=== PATIENT | female | born 1990 | race Caucasian/White ===

== ENCOUNTER 2023-10-12 06:54 | Emergency (ER) | payer OTHER, SELFPAY ==
[2023-10-12 07:01] VITALS: BP 117/79; PULSE 100; RESP 18; TEMP 37.9; O2SAT 97; BMI 23.2
--- NOTE | 2023-10-12 07:27 | ED.GENADULT ---
HPI - General Adult General Date Seen: 10/12/23 Chief complaint: Nausea/Vomiting Stated complaint: vomiting,diarrhea 8 weeks Time Seen by Provider: 10/12/23 07:03 History of Present Illness HPI narrative: this is a 33-year-old female who is a G4, P3 currently about 8 weeks . She reports that she had an outpatient ultrasound yesterday that showed a viable embryo. She presents to the ER this morning for evaluation of diarrhea it and vomiting. To her 3 children have been sick recently with self-limited diarrheal illnesses which she presumes are probably viral. She developed symptoms 2 days ago on Wednesday. Symptoms started with nausea and vomiting and then diarrhea. She has had multiple watery stools. No bloody removed with the stool. Diarrhea has been mostly liquid. No bloody emesis. Yesterday morning she was feeling a little bit better but then she got progressively worse throughout the day. She has had multiple episodes of vomiting and many episodes of diarrhea overnight P she is feeling weak. She has felt chilled but does not know she has had a fever. No fainting. She is having some crampy abdominal pain. No vaginal discharge or bleeding. No other recent antibiotics. No travel. No suspicious food intake. Related Data Home Medications Medication Instructions Recorded Confirmed 10/12/23 Previous Rx's Medication Instructions Recorded metoclopramide HCl 10 mg tablet 10 mg PO Q6H PRN nausea and 10/12/23 (Reglan) vomiting #10 tabs Allergies Allergy/AdvReac Type Severity Reaction Status Date / Time No Known Drug Allergies Allergy Verified 10/12/23 07:06 [facility] Social History Smoking Status: Never smoker How often do you have a drink containing alcohol: never AUDIT-C Alcohol total score: 0 Non-prescribed substance use: denies use Exam Narrative: Exam Narrative: Constitutional: Appears well-developed and well-nourished. Alert. Conversant and polite, but anxious. Non toxic. low-grade fever. HENT: Head: Atraumatic. Nose: Nose normal. Mouth/Throat: Oral mucosa is clear But dry, not desiccated or cracked. no trismus. Pharynx normal. Tonsils symmetric. No tonsillar enlargement, erythema, or exudate. Eyes: Conjunctivae normal. EOM normal. Pupils equal, round, and reactive to light. No scleral icterus. Neck: Normal range of motion. Neck supple. No tracheal deviation present. Cardiovascular: Normal rate, regular rhythm. No gallop. No friction rub. No murmur heard. Symmetric radial artery pulses Pulmonary/Chest: Effort normal. No stridor. No respiratory distress. No wheezes. No rales. No rhonchi . No tenderness. Abdominal: Soft. Bowel sounds normal. No distension. No mass. No tenderness. No rebound. No guarding. Musculoskeletal: RUE: Normal range of motion. No tenderness. No deformity LUE: Normal range of motion. No tenderness. No deformity RLE: Normal range of motion. No edema. No tenderness. No deformity LLE: Normal range of motion. No edema. No tenderness. No deformity Neurological: Alert and oriented to person, place, and time. Normal strength. CN II-VII intact. No sensory deficit. GCS eye subscore is 4. GCS verbal subscore is 5. GCS motor subscore is 6. Normal coordination Skin: Skin is warm and dry. No rash noted. No pallor. Normal capillary refill. Psychiatric: Normal mood. Normal affect. Const: Vital Signs, click to edit/add: Vital Signs - 24 hr 10/12/23 07:01 Temperature 100.2 F H Pulse Rate [Pulse Oximeter] 100 Respiratory Rate 18 Blood Pressure [Ri t Upper Arm] 117/79 Pulse Oximetry 97 Oxygen Delivery Me thod Room Air Course Course ED Course: recheck-says her stomach is starting to calm down after Reglan. Has received Almost all of 1 L. She is willing to try a p.o. challenge. Vital Signs Vital signs: Initial Vital Signs Temperature 100.2 F H 10/12/23 07:01 Temperature Source Temporal Artery Scan 10/12/23 07:01 Pulse Rate 100 10/12/23 07:01 Respiratory Rate 18 10/12/23 07:01 Blood Pressure 117/79 10/12/23 07:01 Blood Pressure Mean 91 10/12/23 07:01 Pulse Oximetry 97 10/12/23 07:01 Oxygen Delivery Method Room Air 10/12/23 07:01 Vital Signs Temperature 100.2 F H 10/12/23 07:01 Pulse Rate 100 10/12/23 07:01 Respiratory Rate 18 10/12/23 07:01 Blood Pressure 117/79 10/12/23 07:01 Pulse Oximetry 97 10/12/23 07:01 Oxygen Delivery Method Room Air 10/12/23 07:01 Temperature 100.2 F H 10/12/23 07:01 Pulse Rate 100 10/12/23 07:01 Respiratory Rate 18 10/12/23 07:01 Blood Pressure 117/79 10/12/23 07:01 Pulse Oximetry 97 10/12/23 07:01 Oxygen Delivery Method Room Air 10/12/23 07:01 Medications Administered Medications: Discontinued Medications Generic Name Dose Route Start Last Admin Trade Name Remy PRN Reason Stop Dose Admin Sodium Chloride 1,000 mls @ 1,000 mls/hr 10/12/23 07:15 10/12/23 07:34 0.9 % Sodium Chloride 1000 Ml IV 10/12/23 08:14 1,000 mls/hr .Q1H ALFIE Administration Metoclopramide HCl 10 mg 10/12/23 07:14 10/12/23 07:34 Metoclopramide Hcl 5 Mg/Ml Inj IVP 10/12/23 07:15 10 mg ONCE ONE Administration Medical Decision Making [facility] Narrative Medical decision making narrative: This patient presents with vomiting and diarrhea. The patient's symptoms and exam could be consistent with a viral GI infection. Two of her children have been sick in the past couple of days with self-limited GI illnesses. There is no high fever, severe pain, bilious or bloody emesis, blood or mucous in the stool, severe abdominal pain, or other concerning signs for a bacterial infection. No recent travel or high risk exposure for baceraial pathogen. No recent antibiotics or risk factors for C. diff. I don't see any evidence for appendicitis, bowel obstruction, abscess, bowel perforation, or other surgical emergency. She is currently 8 weeks . She is not having any significant pelvic pain or vaginal bleeding to suggest miscarriage. She has already had an outpatient ultrasound (yesterday ) the confirmed a viable IUP. limits our choice for antiemetics and antidiarrheals. She says she really wants to be is safe as possible with her . Discussed that there is limited safety data for Imodium and pregnanc ( has found in upto date), but the risk of may be worth the benefit in this case to avoid dehydration and resulting electrolyte shifts from uncontrolled diarrhea. She prefers to hold off on Imodium. Will try Reglan for nausea rather than Zofran given mixed safety data from Zofran during 1st trimester. Labs show no concerning electrolyte disturbance or renal failure. After meds given the patient is feeling better. At this point, the patient is non-septic appearing and well hydrated.I think the patient can be managed as an outpatient. We have discussed oral rehydration strategies. They understand and can perform the needed interventions at home. I have provided a prescription for antiemetics to facilitate oral hydration ( Reglan). We have discussed the signs and symptoms of worsening dehydration. They understand the need for immediate reevaluation if any of these symptoms occur. They are also directed to obtain close outpatient follow up within 2-3 days. Lab Data Labs: Lab Results 10/12/23 Range/Units 07:30 WBC 13.24 H (4.50-11.00) K/uL RBC 4.77 (4.00-5.20) m/uL Hgb 13.3 (12.0-16.0) gm/dL Hct 39.0 (33.0-51.0) % MCV 82 (80-100) fL MCH 28 (26-34) pg MCHC 34 (32-36) gm/dL RDW Coeff of Asiya 14.0 (11.5-15.5) % Plt Count 380 (140-440) K/uL Neut % (Auto) 93.9 H (42.0-72.0) % Lymph % (Auto) 3.6 L (20-44) % [place] % (Auto) 2.3 (0.0-11.0) % Eos % (Auto) 0.0 (0.0-7.0) % Baso % (Auto) 0.1 (0.0-3.0) % Neut # (Auto) 12.40 H (1.7-7.0) K/uL Lymph # (Auto) 0.50 L (0.90-2.90) K/uL [place] # (Auto) 0.30 (0.00-0.90) K/UL Eos # (Auto) 0.00 (0.00-0.50) K/uL Baso # (Auto) 0.00 (0.00-0.30) K/uL Abs Immat Gran (auto) 0.00 (0.00-0.30) K/uL Imm/Tot Granulo (auto) 0.1 % Sodium 137 (135-149) mmol/L Potassium 3.8 (3.6-5.1) mmol/L Chloride 104 (96-114) mmol/L Carbon Dioxide 20 (20-32) mmol/L Anion Gap 13 (7-15) mEq/L BUN 10 (5-24) mg/dL Creatinine 0.4 L (0.5-1.5) mg/dL Estimated Creat Clear 174.36 Estimated GFR 135 ml/min Glucose 118 H (60-115) mg/dL Calcium 9.3 (8.4-10.6) mg/dL Discharge Plan Discharge Clinical Impression: Nausea vomiting and diarrhea, Dehydration Patient Disposition: Home, Self-Care Condition: Stable Instructions: Dehydration (ED), Acute Nausea and Vomiting (DC), Acute Diarrhea (ED) Additional Instructions: With please return to the ER or see your doctor right away if you have any problems especially uncontrolled vomiting or diarrhea, dehydration, high fever, bloody stool or vomit, or any concern for your baby such as vaginal bleeding or vaginal discharge or pelvic cramping. Prescriptions: New metoclopramide HCl [Reglan] 10 mg tablet 10 mg PO Q6H PRN (Reason: nausea and vomiting) Qty: 10 0RF No Action Follow Up/Referrals: Corrina Arnold MD [Primary Care Provider] - Stand Alone Forms: [employer] Info Instructions
[2023-10-12] MEDS: 0.9 % SODIUM CHLORIDE 1000 ml 1,000 ML IV (07:34)
[2023-10-12] MEDS: METOCLOPRAMIDE HCL 5 MG/ML INJ 10 MG IVP (07:34)
[2023-10-12 07:51] LABS: Basophils Percent Auto 0.1 % (0.0-3.0); Hemoglobin* 13.3 gm/dL (12.0-16.0); Immature Granulocytes Pct Auto 0.1 %; Lymphocytes Percent Auto 3.6 % (20-44); Mean Corpuscular HGB Conc 34 gm/dL (32-36); Mean Corpuscular Hemoglobin 28 pg (26-34); Mean Corpuscular Volume 82 fL (80-100); Monocytes Percent Auto 2.3 % (0.0-11.0); Neutrophils Percent Auto 93.9 % (42.0-72.0); Platelet Count* 380 K/uL (140-440); Red Blood Count 4.77 m/uL (4.00-5.20); White Blood Count* 13.24 K/uL (4.50-11.00)
[2023-10-12 07:56] LABS: Chloride* 104 mmol/L (96-114); Potassium* 3.8 mmol/L (3.6-5.1); Slide Review Reflex No; Sodium* 137 mmol/L (135-149)
[2023-10-12 07:58] LABS: Creatinine* 0.4 mg/dL (0.5-1.5); Est. Creatinine Clearance* 174.36; Estimated Glomerular Filt Rate 135 ml/min
[2023-10-12 07:59] LABS: Anion Gap 13 mEq/L (7-15); Blood Urea Nitrogen* 10 mg/dL (5-24); Calcium* 9.3 mg/dL (8.4-10.6); Carbon Dioxide* 20 mmol/L (20-32); Glucose* 118 mg/dL (60-115)
== END 2023-10-12 09:19 | disposition home or self-care (01) ==
PROVIDERS: Emergency Provider Emergency Medicine; PCP Family Medicine
DX: R11.2 Nausea with vomiting, unspecified (principal); R19.7 Diarrhea, unspecified; E86.0 Dehydration
CPT/HCPCS: 36415; 80048; 85025; 96361; 96374; 99283; 99284; J2765; J7030

== ENCOUNTER 2024-05-16 14:08 | Outpatient (CLI) | payer OTHER, SELFPAY ==
[2024-05-16 14:28] VITALS: BP 124/79; PULSE 86
--- NOTE | 2024-05-16 16:29 | PC.OBNST ---
NST Note NST Note Start: 05/16/24 14:21 Freq: ONCE Status: Active Protocol: Document 05/16/24 14:21 RRP (Rec: 05/16/24 16:29 RRP [id number]) NST Note 4 Para (# of births) 3 EDC 05/20/24 Gestational Age In Weeks & Days 39 Weeks & 3 Days Patient Presented with Complaint(s) of Decreased movement Reactive Yes Appropriate for Gestational Age Yes Princess Myers Date 05/16/24 Reactive Yes Appropriate for Gestational Age Yes Ashanti Bray Date 05/16/24 OB NST charge Yes Complete NST Note via Write Note Yes The provider's electronic signature indicates the NST is reactive/appropriate for gestational age. *Note to provider: If an addendum is required, open the patient's chart and click on the note under the Nurse/Allied Health tab.
== END 2024-05-16 16:05 | disposition home or self-care (01) ==
LOC: OB OUT 14:10 → OB 14:12
PROVIDERS: PCP Family Medicine; Visit Provider Surgery
DX: O36.8130 Decreased fetal movements, third trimester, not applicable or unspecified (principal); Z3A.39 39 weeks gestation of pregnancy
CPT/HCPCS: 59025; G0463

== ENCOUNTER 2024-05-18 13:00 | Outpatient (RCR) | payer OTHER, SELFPAY | END 2024-08-29 12:38 | disposition home or self-care (01) | PROVIDERS: PCP Family Medicine; Visit Provider Family Medicine | DX: O99.891 Other specified diseases and conditions complicating pregnancy (principal); M54.9 Dorsalgia, unspecified; Z51.89 Encounter for other specified aftercare | CPT/HCPCS: 97012; 97110; 97140; 97161; 97530 ==

== ENCOUNTER 2024-05-24 03:28 | Inpatient (IN) | payer OTHER, SELFPAY ==
[2024-05-24] VITALS (16 sets, daily range): BP systolic 103–142; BP diastolic 59–82; PULSE 82–121; RESP 16–96; TEMP 36.3–36.9; O2SAT 96–98; BMI 30.2
[2024-05-24] MEDS: LIDOCAINE 1 % PF 30 ML INJECTION (04:39)
[2024-05-24] MEDS: OXYTOCIN 10 UNIT/ML INJ IM (04:39)
--- NOTE | 2024-05-24 05:09 | P.OBHP_ITS ---
OB - H&P: HPI Labor/Induction History of Present Illness Date Seen: 05/24/24 Chief Complaint: The patient is a 34 year old 4 para 3 at 40+4 weeks gestation by LMP and confirmed with 1st trimester US, who presents with painful, regular contractions. Chief complaint: Maternity : 4 Para: 3 Narrative: Blanca Vaughn is a 34 year old at 40+4 weeks here for active labor at term. has been uncomplicated. GBS negative, rH+, rubella immune. She started having contractions at 2300 on 05/23, these became severe around 0230 on 05/24 and she presented to labor and delivery around 0330 at 10 cm dilated and had SROM at 0339. History of Present Dating criteria: based on LMP care: good care Ultrasounds: normal 1st trimester US and normal mid trimester US Medical complications: none Labs Blood type: O (+) positive Rubella: immune RPR/VDLR: nonreactive GBS status: negative HBsAG: negative Review of Systems Status of ROS: Reports: 6 or more systems reviewed and unremarkable except as noted in History and below Meds Home Medications and Allergies Home Medications ?Medication ?Instructions ?Recorded ?Confirmed ?Type 1 cap PO DAILY 10/12/23 05/24/24 History mometasone 50 mcg/actuation nasal 2 spray intranasal DAILY 05/24/24 05/24/24 History spray Allergies Allergy/AdvReac Type Severity Reaction Status Date / Time No Known Drug Allergies Allergy Verified 03/09/24 11:21 OB - H&P: Exam Physical Exam: Vital signs: Temp Pulse Resp BP 98.2 F 100 16 116/76 05/24/24 04:20 05/24/24 05:03 05/24/24 04:20 05/24/24 05:03 Constitutional: Constitutional: no acute distress Routine HEENT Exam: Head: Present atraumatic Eye: Present EOMI and PERRL ENT: Present mucous membranes moist Routine Neck Exam: Neck: Present full ROM Routine Respiratory Exam: Respiratory: Present CTA bilaterally Routine Cardiovascular Exam: Cardiovascular: RRR Detailed Labor and Delivery Exam: Dilation (cm): 10 Effacement (%): 100 Contraction frequency (min): 2 Contraction intensity: Strong/Firm Fetus (Single): Station: 0 Position: Right Occiput Anterior Amniotic Membrane Status: SROM Amniotic Membrane Fluid Description: Clear Heart Rate Baseline: 140 Monitor Accelerations: Present Monitor Decelerations: None Penitentiary Variability: Moderate (6-25) OB - Problem Based A/P Additional Plan (1) Vaginal delivery: Problem details: x4. 3rd degree tear with 1st delivery. Status: Acute Plan Term in active labor desires waterbirth, consent obtained. Expectant management. Anticipate .
--- NOTE | 2024-05-24 05:17 | W.PM.VAGD1_ITS ---
Procedure Delivery date: 05/24/24 Procedure Done: Global Delivery monitor: external FHT and external uterine Route of delivery: (water ) Laceration description: Perineal - 2nd Degree Estimated blood loss (mL): 375 Anesthesia type: None Narrative: The patient is a 34 year-old admitted on 05/24/2024 at 40 Weeks, 4 Days gestation for active labor starting 2300 on 05/23.? Cervical exam on admission was 10 cm/100 % effaced/0 station with membranes ruptured in vertex presentation.? Contractions were every 2 minutes.? heart rate demonstrated baseline 140 bpm with moderate variability, + accelerations, - decelerations; a category 1 tracing.? SROM occurred at 0339 with clear fluid. ? Labor Analgesia:? none ? Pitocin:? post partim ? Labor onset:? 05/23/24 at 2300 ? Complete:? 033 ? Pushing:? 0410, once able to enter the birthing tub ? heart tones during second stage were 140s with intermittent ascultataion. ? At 0422 a viable female delivered in vertex OA presentation over intact perineum via spontaneous vaginal delivery.? was placed on maternal abdomen.? Cord was clamped and cut after a 30-60 second delay.? Nose and mouth were bulb suctioned.? weight pending.? 8 at 1 minute and 9 at 5 minutes.? Shoulder dystocia: no.? Nuchal cord: yes, and nuchal hand. Cord reduced after delivery. ? Placenta delivered spontaneously and complete at 0436 with a 3 vessel cord. ? Mother and infant were stable after delivery. ? Lacerations:? 2nd degree perineal, repaired with 3-0 vicryl suture. ? Blood loss: 375 mL. Blood loss measurement type: EBL ? Sponge and needles counts are correct. [place] Gender: Female presentation: vertex Placental Delivery Description: Spontaneous Cord Description: Nuchal Cord total score - 1 minute: 8 total score - 5 minute: 9
[2024-05-24] MEDS: IBUPROFEN 600 MG TABLET PO ×3 (05:25→19:56)
[2024-05-24] MEDS: ACETAMINOPHEN 500 MG TABLET 1000 MG PO ×3 (10:26→22:44)
[2024-05-24] MEDS: DOCUSATE SODIUM 100 MG CAPSULE PO (10:26)
[2024-05-25] MEDS: IBUPROFEN 600 MG TABLET PO (03:45)
[2024-05-25 05:02] VITALS: BP 105/70; PULSE 91; RESP 16; TEMP 36.6
[2024-05-25] MEDS: ACETAMINOPHEN 500 MG TABLET 1000 MG PO (06:09)
--- NOTE | 2024-05-25 07:41 | P.DS_ITS ---
DS: Providers Provider Date Seen: 05/25/24 Date of admission: 05/24/24 03:28 Primary care physician: Corrina Arnold MD Admitting Clinician: Ambrose Finney MD Attending Physician on discharge: Armida De Santiago DO Date of Discharge: 05/25/24 Exam Const: Vital Signs, click to edit/add: Vital Signs - 24 hr 05/24/24 08:09 05/24/24 08:09 05/24/24 08:09 Temperature 98.4 F Pulse Rate 96 Pulse Rate [Pulse Oximeter] 96 Respiratory Rate 16 Blood Pressure 111/69 Blood Pressure [Le ft Arm] 111/69 Pulse Oximetry Oxygen Delivery Me thod Room Air 05/24/24 13:34 05/24/24 16:51 05/24/24 19:57 Temperature 98.0 F 97.4 F L 98.3 F Pulse Rate Pulse Rate [Pulse Oximeter] 98 93 94 Respiratory Rate 16 96 H 16 Blood Pressure Blood Pressure [Le ft Arm] 111/76 113/71 110/75 Pulse Oximetry 97 96 98 Oxygen Delivery Me thod Room Air Room Air Room Air 05/24/24 22:46 05/25/24 05:02 Temperature 97.4 F L 97.9 F Pulse Rate Pulse Rate [Pulse Oximeter] 91 91 Respiratory Rate 16 16 Blood Pressure Blood Pressure [Le ft Arm] 113/73 105/70 Pulse Oximetry 97 Oxygen Delivery Me thod Room Air Common normals: no apparent distress General appearance: comfortable Resp: Common normals: normal respiratory effort and clear to auscultation bilaterally Auscultation: clear to auscultation bilaterally Cardio: Common normals: regular rate, regular rhythm and no murmurs Rate: regular rate Rhythm: regular rhythm : Uterus: firm Extremity: Common normals: no pedal edema OB - DS: Summary Hospital Course Hospital Course: The patient is a 34 year old G 4 P 4 at 40.4 weeks gestation that was admitted to the Center on 05/24/24 for active labor. She had an uncomplicated vaginal delivery. She delivered a viable female infant. She is breast feeding. the patient has done well. Peripartum Data Infant delivery method: Vaginal Laceration description: Perineal - 2nd Degree Infant Gender: Female Infant Discharge Plan: Home Status at Discharge Functional status at discharge: independent ambulation Time Spent with Patient Time attestation: Total time spent providing and/or coordinating discharge services: Time spent: Less than 30 minutes Discharge Plan Discharge Disposition: Home, Self-Care Date of Admission: 05/24/24 03:28 Attending Provider on Discharge: Armida De Santiago Primary Care Provider: Corrina Arnold Condition: Stable Anticipated Discharge Date/Time: 05/25/24 07:38 Discharge Medications: Continued mometasone 50 mcg/actuation spray,non-aerosol 2 spray intranasal DAILY Rx Instructions: administer into each nostril 1 cap PO DAILY Discharge Orders: Discharge Order (Routine); Ordered 05/25/24 Ordered By: Armida De Santiago Patient Education: Vaginal Delivery (DC), OB Vaginal/Breast Feeding Follow Up Appointments: Corrina Arnold MD [Primary Care Provider] - Forms: [facility] Info Instructions
[2024-05-25 08:08] VITALS: BP 108/72; PULSE 93; RESP 16; TEMP 36.7; O2SAT 96
[2024-05-25] MEDS: DOCUSATE SODIUM 100 MG CAPSULE PO (08:08)
[2024-05-26 21:46] LABS: Rapid Plasma Reagin (RPR) Non Reactive (Non Reactive)
== END 2024-05-25 11:30 | disposition home or self-care (01) | DRG 807 ==
LOC: OB OUT 03:50 → OB 03:50
PROVIDERS: Admitting Provider Surgery; PCP Family Medicine; Visit Provider Surgery
DX: O48.0 Post-term pregnancy (principal); Z37.0 Single live birth; O70.1 Second degree perineal laceration during delivery; Z3A.40 40 weeks gestation of pregnancy
CPT/HCPCS: 36415; 85018; 86592; A9270; J2001; J2590

== ENCOUNTER 2024-06-05 19:07 | Emergency (ER) | payer OTHER, SELFPAY ==
[2024-06-05 19:13] VITALS: BP 138/95; PULSE 135; RESP 18; TEMP 38.8; O2SAT 98; BMI 27.5
[2024-06-05] MEDS: 0.9 % SODIUM CHLORIDE 1000 ml 1,000 ML IV ×2 (20:05→20:43)
[2024-06-05] MEDS: cefTRIAXone 1 GM in 0.9 % SODIUM CHLORIDE Mini-bag 100 ML IVPB (20:05)
[2024-06-05] MEDS: KETOROLAC 30 MG/ML inj 15 MG IVP (20:05)
[2024-06-05 20:14] LABS: Lactate* 2.1 mmol/L (0.5-1.9)
[2024-06-05 20:15] LABS: Basophils Percent Auto 0.2 % (0.0-3.0); Eosinophils Percent Auto 0.7 % (0.0-7.0); Hematocrit 38.9 % (33.0-51.0); Immature Granulocytes Pct Auto 0.2 %; Lymphocytes Percent Auto 5.5 % (20-44); Mean Corpuscular HGB Conc 33 gm/dL (32-36); Mean Corpuscular Hemoglobin 29 pg (26-34); Mean Corpuscular Volume 88 fL (80-100); Neutrophils Percent Auto 89.4 % (42.0-72.0); Platelet Count* 404 K/uL (140-440); RDW Coefficient of Variation % 12.3 % (11.5-15.5); Red Blood Count 4.43 m/uL (4.00-5.20); White Blood Count* 16.58 K/uL (4.50-11.00)
[2024-06-05 20:31] LABS: Chloride* 103 mmol/L (96-114); Slide Review Reflex No; Sodium* 135 mmol/L (135-149)
[2024-06-05 20:32] LABS: Potassium* 4.1 mmol/L (3.6-5.1)
[2024-06-05 20:34] LABS: Creatinine* 0.6 mg/dL (0.5-1.5); Est. Creatinine Clearance* 115.16; Estimated Glomerular Filt Rate 121 ml/min
[2024-06-05 20:35] LABS: Anion Gap 11 mEq/L (7-15); Blood Urea Nitrogen* 14 mg/dL (5-24); Calcium* 9.9 mg/dL (8.4-10.6); Carbon Dioxide* 21 mmol/L (20-32); Glucose* 109 mg/dL (60-115)
[2024-06-05 21:30] VITALS: BP 131/84; PULSE 86; RESP 16; O2SAT 98
[2024-06-05 21:35] LABS: Lactate* 0.6 mmol/L (0.5-1.9)
--- NOTE | 2024-06-05 21:45 | ED_ITS ---
HPI - General Adult General Chief complaint: Post OB/Post- Complication Stated complaint: fever, high BP, headache, 11 days post Time Seen by Provider: 06/05/24 19:10 History of Present Illness HPI narrative: This 34-year-old female comes in with temperature 102? F. Symptoms began today. She is 11 days after delivering her 4th child vaginally. Everything went properly and she has been doing well until today. She does report breast pain but does not have any skin changes or discharge other than milk. She is . She does not report any particular abdominal pain or dysuria symptoms. She did have a second-degree laceration repair just after delivery but reports that this seems to be healing properly. Related Data Home Medications ?Medication ?Instructions ?Recorded ?Confirmed 1 cap PO DAILY 10/12/23 05/24/24 mometasone 50 mcg/actuation nasal 2 spray intranasal DAILY 05/24/24 05/24/24 spray Previous Rx's ?Medication ?Instructions ?Recorded dicloxacillin 500 mg capsule 500 mg PO QID #30 caps 06/05/24 Allergies Allergy/AdvReac Type Severity Reaction Status Date / Time No Known Drug Allergies Allergy Verified 03/09/24 11:21 Review of Systems Status of ROS: Reports: 10 or more systems reviewed and unremarkable except as noted in History and below Narrative: Constitutional: Fever that began today. Eyes: No discharge. No vision changes. HENT: No congestion, no sore throat, no ear pain. Cardiovascular: No chest pain, no palpitations. Respiratory: No shortness of breath, no wheezes, no cough. Gastrointestinal: No abdominal pain, no vomiting, no diarrhea. Genitourinary: No dysuria, no hematuria. Musculoskeletal: Normal range of motion. Skin: No rashes, no pruritis. Neurological: No dizziness, weakness, sensory change, speech change. Endo/Heme/Allergies: No bruising or bleeding. No polydipsia. Pysch: no suicidality, no anxiety, no insomnia. All other systems reviewed and are negative. [facility] Medical History (Updated 06/05/24 @ 21:52 by Martin Gilman MD) History of kidney stones ?Z87.442 - Personal history of urinary calculi (ICD-10) Vaginal delivery ?O80 - Encounter for full-term uncomplicated delivery (ICD-10) Family History Paternal Grandmother ALS (amyotrophic lateral sclerosis) Maternal Grandfather Lung cancer Paternal Grandfather Lung cancer Social History What is your current living situation?: I presently have a place to live Problems where you live: no known problems In the past 12 months, utilities in danger of being shut off: no In past 12 months, lack of transportation kept you from medical appts, meetings, work, or getting things needed for daily living: no In the past 12 mos, have been you worried that your food would run out before you had money to buy more?: never true In the past 12 mos, the food you bought just didn't last and you didn't have money to buy more?: never true Smoking Status: Never smoker How often do you have a drink containing alcohol: never AUDIT-C Alcohol total score: 0 Non-prescribed substance use: denies use How often does anyone, including family, friends and others, physically hurt you : never How often does anyone, including family, friends and others, insult or talk down to you: never How often does anyone, including family, friends and others, threaten you with harm: never How often does anyone, including family, friends and others, scream or curse at you: never Exam Narrative: Exam Narrative: Constitutional: Well-developed, well-nourished, no acute distress. HEENT: Normocephalic, atraumatic. Neck: Normal range of motion. Nontender. Supple. Heart: Regular. No murmurs. Tachycardia. Intact distal pulses. Lungs: Clear to auscultation. No chest discomfort. No wheezes, rhonchi, or rales. Abdomen: Normal bowel sounds. Nontender. No rebound tenderness. Genitalia: Deferred. Back: No midline tenderness. Normal range of motion. Extremities: Normal range of motion. No injury. Skin: Intact. No rash. Warm. No erythema or pallor. Neurologic: No altered sensation. No weakness. Alert and oriented. Psychiatric: No suicidality. No anxiety or depression. No insomnia. Nursing notes and vitals signs are reviewed. Const: Vital Signs, click to edit/add: Vital Signs - 24 hr 06/05/24 19:13 Temperature 102 F H Pulse Rate [Pulse Oximeter] 135 H Respiratory Rate 18 Blood Pressure [Le ft Upper Arm] 138/95 H Pulse Oximetry 98 Oxygen Delivery Me thod Room Air Course Vital Signs Vital signs: Initial Vital Signs Temperature 102 F H 06/05/24 19:13 Temperature Source Temporal Artery Scan 06/05/24 19:13 Pulse Rate 135 H 06/05/24 19:13 Respiratory Rate 18 06/05/24 19:13 Blood Pressure 138/95 H 06/05/24 19:13 Blood Pressure Mean 109 H 06/05/24 19:13 Blood Pressure Position Sitting 06/05/24 19:13 Pulse Oximetry 98 06/05/24 19:13 Oxygen Delivery Method Room Air 06/05/24 19:13 Vital Signs Temperature 102 F H 06/05/24 19:13 Pulse Rate 135 H 06/05/24 19:13 Respiratory Rate 18 06/05/24 19:13 Blood Pressure 138/95 H 06/05/24 19:13 Pulse Oximetry 98 06/05/24 19:13 Oxygen Delivery Method Room Air 06/05/24 19:13 Temperature 102 F H 06/05/24 19:13 Pulse Rate 135 H 06/05/24 19:13 Respiratory Rate 18 06/05/24 19:13 Blood Pressure 138/95 H 06/05/24 19:13 Pulse Oximetry 98 06/05/24 19:13 Oxygen Delivery Method Room Air 06/05/24 19:13 Medications Administered Medications: Discontinued Medications Generic Name Dose Route Start Last Admin Trade Name Freq PRN Reason Stop Dose Admin Sodium Chloride 1,000 mls @ 1,000 mls/hr 06/05/24 19:30 06/05/24 20:43 0.9 % Sodium Chloride 1000 Ml IV 06/05/24 20:29 Infused .Q1H ALFIE Infusion Ceftriaxone Sodium 1 gm/ 100 mls @ 200 mls/hr 06/05/24 19:35 06/05/24 20:43 Sodium Chloride IVPB 06/05/24 19:36 Infused ONCE ONE Infusion Sodium Chloride 1,000 mls @ 1,000 mls/hr 06/05/24 20:45 06/05/24 21:24 0.9 % Sodium Chloride 1000 Ml IV 06/05/24 21:44 Infused .Q1H ALFIE Infusion Ketorolac Tromethamine 15 mg 06/05/24 19:29 06/05/24 20:05 Ketorolac 30 Mg/Ml Inj IVP 06/05/24 19:30 15 mg ONCE ONE Administration Medical Decision Making MDM Narrative Medical decision making narrative: This patient comes in with a fever and tachycardia. She is reporting breast pain. An IV was established and labs are acquired. One culture of her blood is obtained. The patient received a L of normal saline initially as there is possibility of sepsis. Her initial lactate returned at 2.1. She received another L of fluids and repeat lactate returned at 0.6. Her white count is elevated at around 16,000. After blood cultures were obtained the patient did receive a g of Rocephin along with Toradol 15 mg. She began to feel better. I did look with ultrasound at bedside and saw normal breasts bilaterally without any sign of abscess or fluid collection. The patient had a normal vaginal delivery and the placenta and amniotic sac appeared normal post delivery of her baby girl. The patient does not have any particular abdominal tenderness or rebound tenderness. Her symptoms are likely due to a mastitis. I did provide a prescription for dicloxacillin. The patient is okay to return home and will follow-up with her primary physician. Lab Data Labs: Lab Results 06/05/24 06/05/24 Range/Units 19:30 21:29 WBC 16.58 H (4.50-11.00) K/uL RBC 4.43 (4.00-5.20) m/uL Hgb 13.0 (12.0-16.0) gm/dL Hct 38.9 (33.0-51.0) % MCV 88 (80-100) fL MCH 29 (26-34) pg MCHC 33 (32-36) gm/dL RDW Coeff of Asiya 12.3 (11.5-15.5) % Plt Count 404 (140-440) K/uL Neut % (Auto) 89.4 H (42.0-72.0) % Lymph % (Auto) 5.5 L (20-44) % [place] % (Auto) 4.0 (0.0-11.0) % Eos % (Auto) 0.7 (0.0-7.0) % Baso % (Auto) 0.2 (0.0-3.0) % Neut # (Auto) 14.80 H (1.7-7.0) K/uL Lymph # (Auto) 0.90 (0.90-2.90) K/uL [place] # (Auto) 0.70 (0.00-0.90) K/UL Eos # (Auto) 0.10 (0.00-0.50) K/uL Baso # (Auto) 0.00 (0.00-0.30) K/uL Abs Immat Gran (auto) 0.00 (0.00-0.30) K/uL Imm/Tot Granulo (auto) 0.2 % Sodium 135 (135-149) mmol/L Potassium 4.1 (3.6-5.1) mmol/L Chloride 103 (96-114) mmol/L Carbon Dioxide 21 (20-32) mmol/L Anion Gap 11 (7-15) mEq/L BUN 14 (5-24) mg/dL Creatinine 0.6 (0.5-1.5) mg/dL Estimated Creat Clear 115.16 Estimated GFR 121 ml/min Glucose 109 (60-115) mg/dL Lactate 2.1 H 0.6 (0.5-1.9) mmol/L Calcium 9.9 (8.4-10.6) mg/dL Discharge Plan Discharge Clinical Impression: Mastitis Patient Disposition: Home w/ Parent or Adult Condition: Improved Additional Instructions: Take medication as prescribed. Use [id number] medicines also as needed and directed. Follow up with MD return if worsening. Prescriptions: New dicloxacillin 500 mg capsule 500 mg PO QID Qty: 30 0RF No Action mometasone 50 mcg/actuation spray,non-aerosol 2 spray intranasal DAILY Rx Instructions: administer into each nostril 1 cap PO DAILY Follow Up/Referrals: Corrina Arnold MD [Primary Care Provider] - [facility] Inst[facility] Procedures Ultrasound Other exam #1: Anatomical areas examined: Bilateral breasts. Indications: Mastitis. Description/findings: No sign of abscess or cystic structures. Impression: Normal exam.
[2024-06-05 21:49] VITALS: TEMP 37.5
[2024-06-05 22:18] VITALS: PULSE 84; RESP 18
== END 2024-06-05 22:20 | disposition home or self-care (01) ==
PROVIDERS: Emergency Provider Emergency Medicine Emergency Medical Services; PCP Family Medicine
DX: N61.0 Mastitis without abscess (principal)
CPT/HCPCS: 36415; 76604; 80048; 83605; 85025; 87040; 96365; 96375; 99284; J0696; J1885; J7030

== ENCOUNTER 2024-07-03 13:33 | Outpatient (CLI) | payer OTHER, SELFPAY ==
--- NOTE | 2024-07-03 14:40 | P.LACCB_ITS ---
Consult Note - Mom Date of Visit Date of visit: 07/03/24 Reason for consultation: Assistance Needed (strong letdown) Visit Code: Visit Patient's Information Phone number: [phone] : 4 Para: 4 Allergies No Known Drug Allergies Allergy (Verified 03/09/24 11:21) Mother's Medical History: Medical History (Updated 06/20/24 @ 00:01 by Background Daemon) History of kidney stones ?Z87.442 - Personal history of urinary calculi (ICD-10) Vaginal delivery ?O80 - Encounter for full-term uncomplicated delivery (ICD-10) Delivery Information Delivery type: Vaginal Gestational Age: 40w 4d Weight: 3.765 kg Discharge Weight: 3.617 kg Percentage weight loss: 3.9 Baby's Information Baby's Age at Visit: 1m 10d Baby's Provider or Clinic: [facility] Jaundice: No Past Experience Past Experience: Yes Current Frequency of Day Feedings: every 1-3 hours Frequency of Night Feedings: every 2-3 hours Both Breasts: Yes Suck: strong Latch: deep, has become more clicky sounding Length of Time: 5 min ea Goals: > 1 year Pumping Pumping: No Supplementing EBM Supplement: No Formula Supplement: No Baby Elimination Number of Wet Diapers a Day: each feeding Number of BM a Day: 6 or more; yellow, seedy Breast/Nipple Condition Breast Information: Breasts are symmetrical with rounded lower quadrants, intramammary distance is less than 1.5 inches. No erythema. Nipples are supple, everted prior to feeding. Breast Shape: Round Engorgement: No Maternal Nipple Condition - Left: Common Nipple Maternal Nipple Condition - Right: Common Nipple Sore Nipples: No Baby Assessment Skin: Normal Tongue/frenulum: Normal/elastic (strong rhythmic suck on a gloved finger) Palate: Average Lips: Relaxed and Symmetrical Jaw Alignment: Symmetrical Mucosa: [place], moist Onsite Observation Pre-Feed weight: 4.922 kg Post-Feed weight: 4.956 kg Milk Transferred (mL): 34 (about 5 min ea breast, not a typical feed as she had eaten just before coming to appt) Position: Cross cradle Attachment/latch-on achieved: Easily Suck pattern: Suck burst and normal rest and Other (on and off as mom's milk sprays at her; clicky sounds start after mom's letdown and babe loses wide, deep mill recorder on breast) Swallow: Gulping Behavior following feed: Alert, content Pre-Nursing Left Nipple: Within Normal Limits Pre-Nursing Right Nipple: Within Normal Limits Post-Nursing Left Nipple: Within Normal Limits Post-Nursing Right Nipple: Within Normal Limits Assessments/Interventions Assessments/Interventions: observation Mom latched baby in cross cradle hold; initial latch calm and comfortable, baby with wide, deep latch and no clicking sounds audible. Clicking sounds begin as mom has a letdown, baby comes off breast, coughing and milk spraying . Mom presses against her nipple/breast to stop flow. Discussed letting milk pour out to allow baby to relatch with less milk pressure. Mom used some back pressure on her breast as baby relatches with more success (per mom) at keeping baby latched . Discussed importance of moving hand around her breast, and not always blocking off the same area of the initial letdown Education provided: Supply/demand nature of milk supply and Other (Position to help wih strong letdown) Feeding Plan: Continue current feeding routine Discussed back pressure on breast during letdown phase to slow the flow to baby during initial phase; once original pressure has subsided, can let go Be sure to rotate hand position to prevent same area in breast from moving milk Reassured tongue movement appears normal Reassured expected weight gain for her age Discussed one breast/feeding for first 2 morning feeds to see if that will slowly help down regulate her milk supply without increase risk of mastitis (mom had a 2 weeks ). Babe hesitant to suck on a gloved finger; asked mom about introducing bottles and they haven't done so yet. Discussed with mom IF she wants baby to take a bottle, should introduce soon as the window for ease of acceptance is closing (usually by 8 weeks) of age. Mom hesitant to pump due to abundant supply. Discussed using a collector of aquarium specimens with concrete wall grinder operator feeds, then when do a bottle in the afternoon/evening, mom can pump but only the amount the baby actually drinks to compensate for missed Follow-Up Suggested follow up: Appointment as needed Time Spent Time spent with patient (min): 75 (Reviewing EMR and face to face with mom and baby) Meds Home Medications and Allergies Home Medications ?Medication ?Instructions ?Recorded ?Confirmed ?Type 1 cap PO DAILY 10/12/23 05/24/24 History mometasone 50 mcg/actuation nasal 2 spray intranasal DAILY 05/24/24 05/24/24 History spray Allergies Allergy/AdvReac Type Severity Reaction Status Date / Time No Known Drug Allergies Allergy Verified 03/09/24 11:21
== END 2024-07-03 13:34 | disposition home or self-care (01) ==
PROVIDERS: PCP Family Medicine; Visit Provider Obstetrics & Gynecology
DX: Z39.1 Encounter for care and examination of lactating mother (principal)
CPT/HCPCS: G0463

== ENCOUNTER 2024-07-18 08:30 | Outpatient (RCR) | payer OTHER, SELFPAY | END 2024-11-15 13:48 | disposition home or self-care (01) | PROVIDERS: PCP Family Medicine; Visit Provider Family Medicine | DX: M62.00 Separation of muscle (nontraumatic), unspecified site (principal); M62.89 Other specified disorders of muscle; Z34.90 Encounter for supervision of normal pregnancy, unspecified, unspecified trimester; R29.3 Abnormal posture; R53.1 Weakness; Q62.2 Congenital megaureter; Z51.89 Encounter for other specified aftercare | CPT/HCPCS: 97112; 97140; 97161; 97530; 97535 ==